=== PATIENT | male | born 1985 | race Caucasian/White ===

== ENCOUNTER 2016-10-11 21:45 | Emergency (ER) | payer BC ==
--- NOTE | 2016-10-11 23:45 | ER Document Report ---
ED General - General Chief Complaint: Cough Stated Complaint: CHEST PAIN Time seen by provider: 23:40 Notes: Patient is a 31-year-old obese male that comes emergency department for chief complaint of chest pain. He states that over the past couple of days or so when he eats he notices a sharp pain in his chest in the middle, he states that when he takes a deep breath he feels a pain occasionally, he states that when he wakes up he coughs and occasionally he wakes up and vomits. He denies any current symptoms. He denies shortness of breath. He has a history of THU and is supposed to wear C Pap, he smokes, he admits to large amounts of caffeine. He states that he has been told that he has reflux and he feels reflux frequently. TRAVEL OUTSIDE OF THE [place] IN LAST 30 DAYS: No - Related Data Allergies/Adverse Reactions: No Known Allergies Allergy (Verified 04/03/14 18:01) Past Medical History - General Information source: Patient - Social History Smoking Status: Current Every Day Smoker Smoking Education Provided: Yes - <3 min Frequency of alcohol use: Rare Drug Abuse: None Lives with: Family Family History: Reviewed & Not Pertinent Patient has suicidal ideation: No Patient has homicidal ideation: No Renal/ Medical History: Denies: Hx Peritoneal Dialysis Psychiatric Medical History: Reports: Hx Anxiety, Hx Bipolar Disorder, Hx Depression Past Surgical History: Reports: Hx Myringotomy - Immunizations Hx Diphtheria, Pertussis, Tetanus Vaccination: Yes Review of Systems - Review of Systems Constitutional: No symptoms reported EENT: No symptoms reported Cardiovascular: See HPI Respiratory: See HPI Gastrointestinal: See HPI Genitourinary: No symptoms reported Male Genitourinary: No symptoms reported Musculoskeletal: No symptoms reported Skin: No symptoms reported Hematologic/Lymphatic: No symptoms reported Neurological/Psychological: No symptoms reported Physical Exam - Vital signs Vitals: Temp Pulse Resp BP Pulse Ox 97.6 F 83 19 127/74 H 99 10/11/16 22:24 10/11/16 22:24 10/11/16 22:24 10/11/16 22:24 10/11/16 22:24 Interpretation: Normal - General General appearance: Appears well, Alert In distress: None - Patient laughing, very talkative, smiling, alert, well appearing - HEENT Head: Normocephalic, Atraumatic Eyes: Normal Conjunctiva: Normal Extraocular movements intact: Yes Eyelashes: Normal Pupils: PERRL Sinus: Normal Nasal: Normal Mouth/Lips: Normal Mucous membranes: Normal Pharynx: Normal Neck: Normal - Respiratory Respiratory status: No respiratory distress Chest status: Nontender Breath sounds: Normal Chest palpation: Normal - Cardiovascular Rhythm: Regular. No: Tachycardia Heart sounds: Normal auscultation, S2 appreciated. No: S1 appreciated Murmur: No - Abdominal Inspection: Normal Distension: No distension Bowel sounds: Normal Tenderness: Nontender. No: Tender, Guarding Organomegaly: No organomegaly - Back Back: Normal, Nontender. No: Tender - Extremities General upper extremity: Normal inspection, Nontender, Normal color, Normal ROM , Normal temperature General lower extremity: Normal inspection, Nontender, Normal color, Normal ROM , Normal temperature, Normal weight bearing. 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 Nonspecific symptoms, symptoms are not new. Based on patient's evaluation, workup, and examination, patient will be started on medications for GERD, instructed primary care follow-up, discussed return precautions. Patient states satisfaction and agreement. - Vital Signs Vital signs: Temp Pulse Resp BP Pulse Ox 97 F L 82 16 132/65 H 98 10/12/16 01:30 10/12/16 01:30 10/12/16 01:30 10/12/16 01:30 10/12/16 01:30 Discharge - Discharge Clinical Impression: Chest pain Qualifiers: Chest pain type: unspecified Qualified Code(s): R07.9 - Chest pain, unspecified Condition: Stable Disposition: HOME, SELF-CARE Additional Instructions: EKG shows no changes, chest x-ray is normal, based on your symptoms and examination this appears to be gastrointestinal in nature. Take the omeprazole as directed daily, reduced caffeine, stop smoking, avoid spicy foods, avoid alcohol and NSAIDs. Follow up with primary care closely for additional management and workup. Return to the emergency department for any concerning or worsening symptoms. Prescriptions: Omeprazole 40 mg PO DAILY #60 capsule.dr Forms: Return to Work
--- NOTE | 2016-10-12 00:08 | EKG REPORT ---
SEVERITY:- ABNORMAL ECG - SINUS RHYTHM LEFT ANTERIOR FASCICULAR BLOCK : Confirmed by: Agata De La Fuente 12-Oct-2016 00:08:16
[2016-10-12] MEDS ORDERED: FAMOTIDINE 20 MG TABLET PO ONE (00:58)
[2016-10-12] MEDS ORDERED: SUCRALFATE 1 GM TABLET PO ONE (00:58)
[2016-10-12] MEDS ORDERED: ONDANSETRON 4 MG TAB.RAPDIS PO ONE (00:58)
[2016-10-12 01:47] VITALS: BP 132/65
== END 2016-10-12 01:30 | disposition home or self-care (01) ==
LOC: ER 21:45
DX: R07.9 Chest pain, unspecified (principal); F17.210 Nicotine dependence, cigarettes, uncomplicated
CPT/HCPCS: 93005; 99283; 71020; 93010; S0119

== ENCOUNTER 2017-02-03 08:08 | Emergency (ER) | payer OTHER ==
[2017-02-03] MEDS ORDERED: DOXYCYCLINE HYCLATE 100 MG TABLET PO ONE (08:45)
[2017-02-03] MEDS ORDERED: CLINDAMYCIN HCL 150 MG CAPSULE PO ONE (08:45)
--- NOTE | 2017-02-03 08:59 | ER Document Report ---
ED Extremity Problem, Lower - General Chief Complaint: Leg Pain Stated Complaint: BILATERAL LEG PAIN Time Seen by Provider: 02/03/17 08:25 Mode of Arrival: Ambulatory Information source: Patient Notes: 31-year-old male who complains of bilateral lower extremity redness and pain. Patient notes he was out fishing a few days prior got sunburned. Symptoms were improving from a sunburn however today he began having worsening pain. Patient denies any fevers or chills admits it feels very warm to touch Patient denies any chest pain shortness of breath of breathing TRAVEL OUTSIDE OF THE [place] IN LAST 30 DAYS: No - Related Data Allergies/Adverse Reactions: No Known Allergies Allergy (Verified 04/03/14 18:01) Past Medical History - Social History Smoking Status: Never Smoker Cigarette use (# per day): No Chew tobacco use (# tins/day): No Smoking Education Provided: No Family History: Reviewed & Not Pertinent Patient has suicidal ideation: No Patient has homicidal ideation: No Renal/ Medical History: Denies: Hx Peritoneal Dialysis Psychiatric Medical History: Reports: Hx Anxiety, Hx Bipolar Disorder, Hx Depression Past Surgical History: Reports: Hx Myringotomy - Immunizations Hx Diphtheria, Pertussis, Tetanus Vaccination: Yes Review of Systems - Review of Systems Notes: PHYSICAL EXAMINATION: GENERAL: Well-appearing, well-nourished and in no acute distress. HEAD: Atraumatic, normocephalic. EYES: Pupils equal round and reactive to light, extraocular movements intact, sclera anicteric, conjunctiva are normal. ENT: Nares patent, oropharynx clear without exudates. Moist mucous membranes. NECK: Normal range of motion, supple without lymphadenopathy LUNGS: Breath sounds clear to auscultation bilaterally and equal. No wheezes rales or rhonchi. HEART: Regular rate and rhythm without murmurs ABDOMEN: Soft, nontender, nondistended abdomen. No guarding, no rebound. No masses appreciated. Musculoskeletal: Normal range of motion, no pitting or edema. No cyanosis. NEUROLOGICAL: Cranial nerves grossly intact. Normal speech, normal gait. Normal sensory, motor exams PSYCH: Normal mood, normal affect. SKIN: Bilateral lower extremity erythema tender warm to touch Physical Exam - Vital signs Vitals: Temp Pulse Resp BP Pulse Ox 98.3 F 97 18 162/84 H 99 02/03/17 08:12 02/03/17 08:12 02/03/17 08:12 02/03/17 08:12 02/03/17 08:12 Course - Re-evaluation Re-evalutation: 02/03/17 16:55 Patient was evaluated and on physical examination has obvious cellulitic component, he is warm to touch. Patient is not having any fevers, since it is tender after being in the water and cuts were made from oysters i will cover for vibrio and possible staph. Patient instructed to return immediately if there are any other concerns After performing a Medical Screening Examination, I estimate there is LOW risk for OPEN FRACTURE, COMPARTMENT SYNDROME, TENDON RUPTURE, ACUTE NEUROVASCULAR INJURY, or RETAINED FOREIGN BODY, thus I consider the discharge disposition reasonable. Also, there is no evidence or peritonitis, sepsis, or toxicity. I have reevaluated this patient multiple times and no significant life threatening changes are noted. The patient and I have discussed the diagnosis and risks, and we agree with discharging home with close follow-up with the understanding that symptoms and presentations can change. We also discussed returning to the Emergency Department immediately if new or worsening symptoms occur. We have discussed the symptoms which are most concerning (e.g., changing or worsening pain, fever, numbness, weakness, cool or painful digits) that necessitate immediate return. - Vital Signs Vital signs: Temp Pulse Resp BP Pulse Ox 98.1 F 83 16 142/80 H 100 02/03/17 09:31 02/03/17 09:31 02/03/17 09:31 02/03/17 09:31 02/03/17 09:31 Discharge - Discharge Clinical Impression: Cellulitis Qualifiers: Site of cellulitis: extremity Site of cellulitis of extremity: lower extremity Laterality: unspecified laterality Qualified Code(s): L03.119 - Cellulitis of unspecified part of limb Leg pain Qualifiers: Laterality: bilateral Qualified Code(s): M79.604 - Pain in right leg Condition: Stable Disposition: HOME, SELF-CARE Instructions: Cellulitis ([facility]) Additional Instructions: You must return immediately if symptoms are worsening or if there are any other concerns Prescriptions: Clindamycin HCl 300 mg PO Q6 #40 capsule Doxycycline Hyclate 100 mg PO BID #20 capsule Oxycodone HCl/Acetaminophen [Percocet 5-325 mg Tablet] 1 tab PO ASDIR PRN #15 tab PRN Reason:
[2017-02-03 09:39] VITALS: BP 142/80
== END 2017-02-03 09:31 | disposition home or self-care (01) ==
LOC: ER 08:08
DX: L03.119 Cellulitis of unspecified part of limb (principal); M79.604 Pain in right leg; M79.605 Pain in left leg
CPT/HCPCS: 99283

== ENCOUNTER 2017-02-07 08:28 | Emergency (ER) | payer OTHER ==
[2017-02-07] MEDS ORDERED: CEFTRIAXONE INJ 1000 MG VIAL IM ONE (10:15)
[2017-02-07] MEDS ORDERED: LIDOCAINE 1% INJ-PF (10 MG/ML) 30 ML SDV INJ ONE (10:15)
--- NOTE | 2017-02-07 10:15 | ER Document Report ---
ED Extremity Problem, Lower - General Mode of Arrival: Ambulatory Information source: Patient TRAVEL OUTSIDE OF THE [place] IN LAST 30 DAYS: No - HPI Patient complains to provider of: Pain, Swelling Location: Leg - bilaterally Occurred: Other - 8 days ago Context: Other - see notes above Associated symptoms: Other - see notes above - General Chief Complaint: Leg Pain Stated Complaint: LEG PAIN Time Seen by Provider: 02/07/17 10:07 Notes: 31 year old male presents to the ED complaining of bilateral lower extremity erythema, swelling, and tenderness that started 8 days ago and has progressively gotten worse. Patient reports that it started with erythema and swelling to the dorsal aspect to the bilateral feet and has spread up his bilateral legs since. Patient states that he was seen in the ED on 02/03/2017 for similar complaints and was started on Doxycycline and Clindamycin which the patient is taking. Patient returned today because the erythema, pain, and tenderness have spread up his legs. Patient states that he was fishing last week and ended up being cut by shells in the mud, but denies being bit by anything. Patient denies history of blood clots. PCP: [facility] (CRISTELA HUYNH) - Related Data Allergies/Adverse Reactions: No Known Allergies Allergy (Verified 04/03/14 18:01) Past Medical History - General Information source: Patient - Social History Smoking Status: Unknown if Ever Smoked Family History: DM Renal/ Medical History: Denies: Hx Peritoneal Dialysis Psychiatric Medical History: Reports: Hx Anxiety, Hx Bipolar Disorder, Hx Depression Past Surgical History: Reports: Hx Myringotomy - Immunizations Hx Diphtheria, Pertussis, Tetanus Vaccination: Yes Review of Systems - Review of Systems Constitutional: No symptoms reported EENT: No symptoms reported Cardiovascular: No symptoms reported Respiratory: No symptoms reported Gastrointestinal: No symptoms reported Genitourinary: No symptoms reported Male Genitourinary: No symptoms reported Musculoskeletal: No symptoms reported Skin: See HPI, Other - erythema and swelling to the bilateral lower extremities Hematologic/Lymphatic: No symptoms reported Neurological/Psychological: No symptoms reported -: Yes All other systems reviewed and negative Physical Exam - General General appearance: Alert In distress: None - HEENT Head: Normocephalic, Atraumatic Eyes: Normal Extraocular movements intact: Yes Pupils: PERRL - Respiratory Respiratory status: No respiratory distress Breath sounds: Normal - Cardiovascular Rhythm: Regular Heart sounds: Normal auscultation Pulses: Normal: Femoral, Popliteal, Posterior tibial, Dorsalis pedis Normal capillary refill: Yes - Abdominal Inspection: Normal Distension: No distension Tenderness: Nontender - Back Back: Normal - Extremities General upper extremity: Normal inspection, Normal ROM General lower extremity: Normal ROM, Other - Bilateral lower extremity erythema that is localized with no superficial spreading to the calf, thigh, or inguinal region. No sign of necrosis or crepitus. No: Normal inspection, Edema - no signs of pitting edema - Neurological Neuro grossly intact: Yes Cognition: Normal Orientation: AAOx4 Rima Coma Scale Eye Opening: Spontaneous [place] Coma Scale Verbal: Oriented [place] Coma Scale Motor: Obeys Commands [place] Coma Scale Total: 15 Speech: Normal - Psychological Associated symptoms: Normal affect, Normal mood - Skin Skin Temperature: Warm Skin Moisture: Dry Skin Color: negative: Normal - see lower extremity exam above Course - Re-evaluation Re-evalutation: 02/07/17 10:16 Patient presents emergency room with lower extremity with redness. Patient states that he was here about a week ago had some redness to the top of his toes initially thought was maybe August also that scratched on some oyster beds. He was placed on doxycycline and clindamycin but says it got a little bit more red today. No fevers chills or systemic complaints he is not diabetic no nausea vomiting or diarrhea he has got bilateral lower extremity cellulitis that is not spreading in nature no inguinal lymphadenopathy no crepitus necrosis no open is no drainage pustules or abscesses. Pulses intact. And give him a dose of Rocephin in the fifth of feeling Dr. tomorrow and discussed reasons for ED return sooner (LISA FREED) - Vital Signs Vital signs: Temp Pulse Resp BP Pulse Ox 97.8 F 80 16 153/92 H 98 02/07/17 10:25 02/07/17 10:25 02/07/17 10:25 02/07/17 10:25 02/07/17 10:25 Discharge - Discharge Clinical Impression: Lower extremity cellulitis Qualifiers: Laterality: unspecified laterality Qualified Code(s): L03.119 - Cellulitis of unspecified part of limb Condition: Stable Disposition: HOME, SELF-CARE Additional Instructions: Cellulitis You have an infection of your skin and underlying soft tissues called cellulitis. This is due to bacteria, which can enter through any break in the skin, or even through an irritated hair follicle. Untreated, cellulitis will usually worsen. Antibiotics are required. Usually, warm packs or warm soaks, and elevation of the infected area are recommended. You should start getting better within 24 to 36 hours. Most infections respond quickly to the right medication. Follow-up care is important, however, to check for abscess (boil) formation, unsuspected foreign body, or resistant infection. If you develop fever, chills, or if the area of infection is becoming rapidly more swollen or painful, call the doctor at once. Referrals: YANIV ZHAO CNM [Primary Care Provider] - Follow up tomorrow (retur to er sooner for increasing worsening or new symptoms) Isaac Attestation: 02/07/17 10:16 I personally performed the services described in the documentation reviewed the documentation recorded by my scribe in my presence and it accurately and completely records my words and actions (LISA FREED) Krystynaibe Documentation - Scribe Written by Isaac:: Isaac Fiore, 02/07/2017 1121 acting as scribe for :: Rubén
[2017-02-07 10:29] VITALS: BP 153/92
== END 2017-02-07 10:30 | disposition home or self-care (01) ==
LOC: ER 08:28
DX: L03.119 Cellulitis of unspecified part of limb (principal); M79.604 Pain in right leg; M79.605 Pain in left leg; M79.89 Other specified soft tissue disorders; Z79.899 Other long term (current) drug therapy
CPT/HCPCS: 99283; 96372; J3490; J0696

== ENCOUNTER 2017-06-17 06:04 | Emergency (ER) | payer OTHER ==
--- NOTE | 2017-06-17 07:33 | ER Document Report ---
HPI - HPI Patient complains to provider of: sinus congestion and ear pain Pain Level: 2 Context: Patient is a 31-year-old male presents emergency department complaining of congestion and ear pain for approximately 1 week. He denies any fevers, chills , sore throat, shortness of breath, difficulty breathing, difficulty swallowing , chest pain, nausea or vomiting. Patient states that he has had symptoms like this in the past related to a head cold that is resolved. - CARDIOVASCULAR Cardiovascular: DENIES: Chest pain - REPRODUCTIVE Reproductive: DENIES: : - DERM Skin Color: Normal Past Medical History - Social History Smoking Status: Unknown if Ever Smoked Chew tobacco use (# tins/day): No Frequency of alcohol use: None Drug Abuse: None Family History: DM Patient has suicidal ideation: No Patient has homicidal ideation: No Renal/ Medical History: Denies: Hx Peritoneal Dialysis Psychiatric Medical History: Reports: Hx Anxiety, Hx Bipolar Disorder, Hx Depression Past Surgical History: Reports: Hx Myringotomy - Immunizations Hx Diphtheria, Pertussis, Tetanus Vaccination: Yes Vertical Provider Document - CONSTITUTIONAL Agree With Documented VS: Yes Exam Limitations: No Limitations General Appearance: WD/WN, No Apparent Distress - INFECTION CONTROL TRAVEL OUTSIDE OF THE [place] IN LAST 30 DAYS: No - HEENT HEENT: Atraumatic, Normal ENT Exam, Normocephalic, PERRLA. negative: Pharyngeal Exudate, Pharyngeal Tenderness, Pharyngeal Erythema, Tympanic Membrane Red, Tympanic Membrane Bulging Notes: Uvula midline. Airway patent. No evidence of tonsillar enlargement, peritonsillar abscess, retropharyngeal abscess. - NECK Neck: Normal Inspection. negative: Lymphadenopathy-Left, Lymphadenopathy-Right - RESPIRATORY Respiratory: Breath Sounds Normal, No Respiratory Distress, Chest Non-Tender. negative: Rales, Rhonchi, Wheezing O2 Sat by Pulse Oximetry: 99 - CARDIOVASCULAR Cardiovascular: Regular Rate, Regular Rhythm, No Murmur Pulses: Normal: Radial - NEURO Level of Consciousness: Awake, Alert, Appropriate Motor/Sensory: No Motor Deficit, No Sensory Deficit - DERM Integumentary: Warm, Dry, No Rash Course - Re-evaluation Re-evalutation: 06/17/17 07:31 After performing a Medical Screening Examination, I estimate there is LOW risk for ACUTE CORONARY SYNDROME, RESPIRATORY FAILURE, SEPSIS OR MENINGITIS, thus I consider the discharge disposition reasonable. I have reevaluated this patient multiple times and no significant life threatening changes are noted. The patient and I have discussed the diagnosis and risks, and we agree with discharging home with close follow-up. We also discussed returning to the Emergency Department immediately if new or worsening symptoms occur. We have discussed the symptoms which are most concerning (e.g., changing or worsening pain, trouble swallowing or breathing, neck stiffness, fever) that necessitate immediate return. - Vital Signs Vital signs: Temp Pulse Resp BP Pulse Ox 97.3 F 86 24 H 146/96 H 99 06/17/17 06:08 06/17/17 06:08 06/17/17 06:08 06/17/17 06:08 06/17/17 06:08 Discharge - Discharge Clinical Impression: Sinus congestion Condition: Good Disposition: HOME, SELF-CARE Additional Instructions: Your symptoms today are consistent with sinus congestion this can be treated with [id number] medication such as an antihistamine including but not limited to Claritin, Benadryl, Lisa or Zyrtec. Please purchase a antihistamine with a decongestant to help with your sinus congestion and ear pain. Please follow-up with your primary care provider in 1 week. Referrals: EVANGELISTA KONG MD [COMMUNITY BASED STAFF] - Follow up in 1 week
[2017-06-17 07:44] VITALS: BP 146/94
== END 2017-06-17 07:45 | disposition home or self-care (01) ==
LOC: ER 06:04
DX: R09.81 Nasal congestion (principal); H92.09 Otalgia, unspecified ear
CPT/HCPCS: 99283

== ENCOUNTER 2017-08-25 14:41 | Emergency (ER) | payer OTHER ==
[2017-08-25] MEDS ORDERED: IBUPROFEN 800 MG TABLET PO ONE (15:15)
[2017-08-25] MEDS ORDERED: LIDOCAINE 5% (700 MG) TRANSDERMAL ADH..PATCH TP ONE (15:15)
--- NOTE | 2017-08-25 15:16 | ER Document Report ---
HPI - HPI Patient complains to provider of: Low back pain Onset: Other - 2 weeks Onset/Duration: Persistent Quality of pain: Achy Pain Level: 3 Context: Patient presents complaining of right lower back pain that radiates around his lateral side. Patient states pain is worse with certain movements. Patient denies any specific injury. Patient denies any abdominal pain, fever, nausea or vomiting. Patient denies any penile drainage or discharge. Patient denies any scrotal pain. Patient states whenever he stands up to void that sometimes the pain worsens. Associated Symptoms: Other - Right lower back pain. denies: Fever Exacerbated by: Standing, Movement Relieved by: Denies Similar symptoms previously: No Recently seen / treated by doctor: No - ROS ROS below otherwise negative: Yes Systems Reviewed and Negative: Yes All other systems reviewed and negative - CONSTITUTIONAL Constitutional: DENIES: Fever, Chills - NEURO Neurology: DENIES: Headache, Weakness - GASTROINTESTINAL Gastrointestinal: DENIES: Abdominal Pain, Nausea - URINARY Urinary: DENIES: Dysuria, Urgency, Frequency - MUSCULOSKELETAL Musculoskeletal: REPORTS: Back Pain. 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 HEAD: Atraumatic, normocephalic. EYES: sclera clear, anicteric, conjunctiva are normal. ENT: nares patent, Moist mucous membranes. NECK: Normal range of motion, supple no lymphadenopathy LUNGS: respirations unlabored HEART: Regular rate and rhythm without murmurs EXTREMITIES: Normal range of motion, no pitting or edema. No cyanosis. Gait normal, pt ambulates without difficulty BACK: Right lower lumbar paraspinal tenderness, no midline tenderness, no deformities or step-offs. No CVA tenderness. NEUROLOGICAL: Cranial nerves grossly intact. Normal speech, normal gait. No saddle anesthesia. PSYCH: Normal mood, normal affect. SKIN: Warm, Dry, normal turgor, no rashes or lesions noted. - INFECTION CONTROL TRAVEL OUTSIDE OF THE [place] IN LAST 30 DAYS: No - RESPIRATORY O2 Sat by Pulse Oximetry: 99 Course - Vital Signs Vital signs: Temp Pulse Resp BP Pulse Ox 97.9 F 86 20 137/78 H 99 08/25/17 14:49 08/25/17 14:49 08/25/17 14:49 08/25/17 14:49 08/25/17 14:49 - Laboratory Laboratory results interpreted by me: 08/25/17 16:25 Labs- Entire Visit 08/25/17 15:53 Urine Color YELLOW Urine Appearance CLEAR Urine pH 6.0 Ur Specific [place] 1.031 Urine Protein NEGATIVE Urine Glucose (UA) NEGATIVE Urine Ketones NEGATIVE Urine Blood NEGATIVE Urine Nitrite NEGATIVE Urine Bilirubin NEGATIVE Urine Urobilinogen 2.0 H Ur Leukocyte Esterase NEGATIVE Urine WBC (Auto) 0 Urine RBC (Auto) 0 U Hyaline Cast (Auto) 1 Urine Mucus (Auto) OCC Urine Ascorbic Acid NEGATIVE Discharge - Discharge Clinical Impression: Low back strain Qualifiers: Encounter type: initial encounter Qualified Code(s): S39.012A - Strain of muscle, fascia and tendon of lower back, initial encounter Condition: Stable Disposition: HOME, SELF-CARE Instructions: Ice Packs ([facility]), Low Back Pain ([facility]), Muscle Strain ([facility]), Oral Narcotic Medication ([facility]), Warm Packs ([facility]) Additional Instructions: Return immediately for any new or worsening symptoms Followup with your primary care provider, call tomorrow to make a followup appointment Prescriptions: Methocarbamol [Robaxin 500 Mg Tablet] 500 mg PO QID PRN #20 tablet PRN Reason: Oxycodone HCl/Acetaminophen [Percocet 5-325 mg Tablet] 1 tab PO ASDIR PRN #15 tablet PRN Reason: Forms: Smoking Cessation Education Referrals: EVANGELISTA KONG MD [Primary Care Provider] - Follow up tomorrow
[2017-08-25 16:07] LABS: APPEARANCE,URINE CLEAR; BILIRUBIN,URINE NEGATIVE (NEGATIVE); GLUCOSE, URINE NEGATIVE (NEGATIVE); KETONES,URINE NEGATIVE (NEGATIVE); LEUKOCYTE ESTERASE,URINE NEGATIVE (NEGATIVE); NITRITE,URINE NEGATIVE (NEGATIVE); PROTEIN,URINE NEGATIVE (NEGATIVE); URINE SPECIFIC GRAVITY 1.031
[2017-08-25 17:13] VITALS: BP 143/86
== END 2017-08-25 16:45 | disposition home or self-care (01) ==
LOC: ER 14:41
DX: S39.012A Strain of muscle, fascia and tendon of lower back, initial encounter (principal); X58.XXXA Exposure to other specified factors, initial encounter; F17.200 Nicotine dependence, unspecified, uncomplicated; Z71.6 Tobacco abuse counseling
CPT/HCPCS: 81001; 99283

== ENCOUNTER 2017-11-12 10:24 | Emergency (ER) | payer OTHER ==
[2017-11-12 10:41] VITALS: BP 129/82
[2017-11-12] MEDS ORDERED: IBUPROFEN 800 MG TABLET PO ONE (10:59)
--- NOTE | 2017-11-12 11:00 | ER Document Report ---
HPI - HPI Patient complains to provider of: Cold symptoms Onset: This morning Onset/Duration: Gradual Quality of pain: Achy Pain Level: 3 Context: Patient presents complaining of flulike symptoms that started today. Patient reports headache, body aches with congestion and nausea. Patient is here with a family member who has similar symptoms. Associated Symptoms: Body/muscle aches, Nonproductive cough, Headache, Nausea, Rhinnorhea. denies: Earache, Vomiting Exacerbated by: Denies Relieved by: Denies Similar symptoms previously: Yes Recently seen / treated by doctor: No - ROS ROS below otherwise negative: Yes Systems Reviewed and Negative: Yes All other systems reviewed and negative - CONSTITUTIONAL Constitutional: REPORTS: Chills - EENT EENT: REPORTS: Congestion - NEURO Neurology: REPORTS: Headache - RESPIRATORY Respiratory: REPORTS: Coughing - GASTROINTESTINAL Gastrointestinal: REPORTS: Nausea. DENIES: Abdominal Pain, Patient vomiting, Diarrhea - REPRODUCTIVE Reproductive: DENIES: : - DERM Skin Color: Normal Skin Problems: None Past Medical History - General Information source: Patient - Social History Smoking Status: Current Every Day Smoker Smoking Education Provided: Yes Frequency of alcohol use: None Drug Abuse: None Occupation: [employer] Lives with: Family Family History: DM Renal/ Medical History: Denies: Hx Peritoneal Dialysis Psychiatric Medical History: Reports: Hx Anxiety, Hx Bipolar Disorder, Hx Depression Surgical Hx: Negative Past Surgical History: Reports: Hx Myringotomy - Immunizations Hx Diphtheria, Pertussis, Tetanus Vaccination: Yes Vertical Provider Document - CONSTITUTIONAL Agree With Documented VS: Yes Exam Limitations: No Limitations General Appearance: Obese - Morbidly - INFECTION CONTROL TRAVEL OUTSIDE OF THE [place] IN LAST 30 DAYS: No - HEENT HEENT: Atraumatic, Normocephalic, Pharyngeal Erythema. negative: Pharyngeal Exudate, Pharyngeal Tenderness, Tympanic Membrane Red, Tympanic Membrane Bulging Notes: Clear rhinorrhea - NECK Neck: Normal Inspection, Supple - RESPIRATORY Respiratory: Breath Sounds Normal, No Respiratory Distress, Chest Non-Tender O2 Sat by Pulse Oximetry: 98 - CARDIOVASCULAR Cardiovascular: Regular Rate, Regular Rhythm, No Murmur - BACK Back: Normal Inspection - MUSCULOSKELETAL/EXTREMETIES Musculoskeletal/Extremeties: ZOILA WING - NEURO Level of Consciousness: Awake, Alert, Appropriate Motor/Sensory: No Motor Deficit - DERM Integumentary: Warm, Dry, No Rash Course - Re-evaluation Re-evalutation: 11/12/17 10:58 Patient presents with URI symptoms. Patient concerned about influenza. Patient is requesting Tamiflu prescription at this time. Discussed efficacy and side effect profile medication. - Vital Signs Vital signs: Temp Pulse Resp BP Pulse Ox 97.8 F 74 16 129/82 H 98 11/12/17 10:39 11/12/17 10:39 11/12/17 10:39 11/12/17 10:39 11/12/17 10:39 Discharge - Discharge Clinical Impression: Flu-like symptoms Condition: Stable Disposition: HOME, SELF-CARE Instructions: Acetaminophen, Influenza (OM) Additional Instructions: Return immediately for any new or worsening symptoms Followup with your primary care provider, call tomorrow to make a followup appointment Prescriptions: Guaifenesin/Pseudoephedrne HCl [Mucinex D ER Tablet] 1 each PO Q12 PRN #12 tab.er.12h PRN Reason: Naproxen [Naprosyn 250 Nmg Tablet] 1 tab PO BID #14 tablet Oseltamivir Phosphate [Tamiflu 75 mg Capsule] 75 mg PO BID #10 capsule Forms: Smoking Cessation Education, Return to Work Referrals: EVANGELISTA KONG MD [COMMUNITY BASED STAFF] - Follow up as needed
== END 2017-11-12 11:12 | disposition home or self-care (01) ==
LOC: ER 10:24
DX: R51 Headache (principal); R11.0 Nausea; R05 Cough; J34.89 Other specified disorders of nose and nasal sinuses; M79.1 Myalgia; F17.200 Nicotine dependence, unspecified, uncomplicated
CPT/HCPCS: 99283

== ENCOUNTER 2017-11-18 20:05 | Emergency (ER) | payer OTHER ==
[2017-11-18] MEDS ORDERED: HYDROCODONE/ACETAMINOPHEN 5-325 MG TABLET PO ONE (21:58)
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
[2017-11-18] MEDS ORDERED: CYCLOBENZAPRINE HCL 10 MG TABLET PO ONE (23:08)
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
[2017-11-19 00:01] VITALS: BP 129/78
== END 2017-11-19 00:19 | disposition home or self-care (01) ==
LOC: ER 20:05
DX: M54.6 Pain in thoracic spine (principal); M25.512 Pain in left shoulder; M54.5 Low back pain; M25.532 Pain in left wrist; M79.602 Pain in left arm; M54.9 Dorsalgia, unspecified; V87.7XXA Person injured in collision between other specified motor vehicles (traffic), initial encounter; F17.210 Nicotine dependence, cigarettes, uncomplicated
CPT/HCPCS: 72110; 99284; 99406

== ENCOUNTER 2018-08-16 20:24 | Emergency (ER) | payer BC, OTHER ==
--- NOTE | 2018-08-16 21:46 | RADIOLOGY REPORT (SQ) ---
EXAM DESCRIPTION: XR HAND 3 OR MORE VIEWS COMPLETED DATE/TME: 08/16/2018 21:02 CLINICAL HISTORY: laceration COMPARISON: None FINDINGS: Three x-ray views of the right hand were submitted. Gauze material project over the distal right thumb. There is no acute fracture or dislocation. Bone mineralization is within normal limits. There is no radiopaque foreign body material. IMPRESSION: No acute fracture or dislocation.
[2018-08-16] MEDS ORDERED: LIDOCAINE 1% INJ-PF (10 MG/ML) 30 ML SDV INJ ONE (23:08)
--- NOTE | 2018-08-16 23:11 | ER Document Report ---
ED Hand/Wrist Injury - General Chief Complaint: Laceration Stated Complaint: FINGER LACERATION Time Seen by Provider: 08/16/18 22:53 Mode of Arrival: Ambulatory Information source: Patient Notes: 32-year-old male presented to ED for laceration to the right thumb. He states he was cutting potatoes when he cut his thumb. He states he was having trouble making the bleeding stopped. The thumb was wrapped up in gauze which I took off. He does have sensation to his hands able to move his thumb. The laceration is to the end of the finger past the last joint. He states he had his last tetanus last year and during a physical. Patient is alert and oriented respirations regular and unlabored speaking in full sentences and able to walk with a even steady gait. TRAVEL OUTSIDE OF THE [place] IN LAST 30 DAYS: No - HPI Injury to: Thumb - Right Onset: This evening Where: Home, Indoors Quality of pain: Sharp, Throbbing Severity: Moderate Pain Level: 4 Context: Laceration - Related Data Allergies/Adverse Reactions: No Known Allergies Allergy (Verified 08/16/18 20:25) Past Medical History - General Information source: Patient - Social History Smoking Status: Current Every Day Smoker Cigarette use (# per day): Yes - 1 1/2 packs/day Smoking Education Provided: Yes - 4 minutes Frequency of alcohol use: Rare Drug Abuse: None Occupation: [employer] Lives with: Family Family History: Arthritis, CAD, COPD, DM, Hyperlipidemia, Hypertension, Malignancy. denies: CVA, Thyroid Disfunction Patient has suicidal ideation: No Patient has homicidal ideation: No - Past Medical History Cardiac Medical History: Reports: None Pulmonary Medical History: Reports: None EENT Medical History: Reports: None Neurological Medical History: Reports: None Endocrine Medical History: Reports: None Renal/ Medical History: Reports: None Malignancy Medical History: Reports None GI Medical History: Reports: None Musculoskeletal Medical History: Reports Hx Musculoskeletal Trauma Skin Medical History: Reports Hx Cellulitis, Reports Hx MRSA Psychiatric Medical History: Reports: Hx Anxiety, Hx Bipolar Disorder, Hx Depression Traumatic Medical History: Reports: Hx Fractures - Toe Infectious Medical History: Reports: Hx MRSA Past Surgical History: Reports: Hx Myringotomy - Immunizations Hx Diphtheria, Pertussis, Tetanus Vaccination: Yes - 2017 Review of Systems - Review of Systems Constitutional: No symptoms reported EENT: No symptoms reported Cardiovascular: No symptoms reported Respiratory: No symptoms reported Gastrointestinal: No symptoms reported Genitourinary: No symptoms reported Male Genitourinary: No symptoms reported Musculoskeletal: No symptoms reported Skin: Other - Laceration to the end of the thumb Hematologic/Lymphatic: No symptoms reported Neurological/Psychological: No symptoms reported -: Yes All other systems reviewed and negative Physical Exam - Vital signs Vitals: Temp Pulse Resp BP Pulse Ox 98.2 F 70 18 159/97 H 100 08/16/18 20:50 08/16/18 20:50 08/16/18 20:50 08/16/18 20:50 08/16/18 20:50 Interpretation: Normal - General General appearance: Appears well, Alert - HEENT Head: Normocephalic, Atraumatic Eyes: Normal Pupils: PERRL - Respiratory Respiratory status: No respiratory distress Chest status: Nontender Breath sounds: Normal Chest palpation: Normal - Cardiovascular Rhythm: Regular Heart sounds: Normal auscultation Murmur: No - Abdominal Inspection: Normal Distension: No distension Bowel sounds: Normal Tenderness: Nontender Organomegaly: No organomegaly - Back Back: Normal, Nontender - Extremities General upper extremity: Normal color, Normal ROM, Normal temperature General lower extremity: Normal inspection, Nontender, Normal color, Normal ROM , Normal temperature, Normal weight bearing. No: Irene's sign Hand: Tender, Laceration - Flap laceration to the right thumb 4 cm, No evidence of human bite, No evidence of FB, Swelling. No: Nail injury - Neurological Neuro grossly intact: Yes Cognition: Normal Orientation: AAOx4 Rima Coma Scale Eye Opening: Spontaneous Rima Coma Scale Verbal: Oriented [place] Coma Scale Motor: Obeys Commands [place] Coma Scale Total: 15 Speech: Normal Motor strength normal: LUE, RUE, LLE, RLE Sensory: Normal - Psychological Associated symptoms: Normal affect, Normal mood - Skin Skin Temperature: Warm Skin Moisture: Dry Skin Color: Normal Skin irregularity: Laceration Location of irregularity: Extremities - right thumb 4 cm laceration distal thumb Irregularity with: Swelling, Tenderness Course - Vital Signs Vital signs: Temp Pulse Resp BP Pulse Ox 98.6 F 76 16 153/75 H 97 08/17/18 00:43 08/17/18 00:43 08/17/18 00:43 08/17/18 00:43 12/06/18 00:43 - Diagnostic Test Radiology reviewed: Image reviewed, Reports reviewed Procedures - Laceration/Wound Repair Right Finger Thumb Time completed: 00:25 Wound length (cm): 4 Wound's Depth, Shape: Flap Laceration pre-procedure: Sterile PPE donned, Sterile drapes applied, Shur- Clens applied Anesthetic type: 1% Lidocaine Volume Anesthetic (mLs): 5 Wound explored: Contaminated Irrigated w/ Saline (mLs): 400 Wound Debrided: Minimal Wound Repaired With: Sutures Suture Size/Type: 4:0, Ethilon Number of Sutures: 7 Layer Closure?: No Post-procedure wound care: Sterile dressing applied Post-procedure NV exam normal: Yes Complications: No Discharge - Discharge Clinical Impression: Laceration of right thumb Qualifiers: Encounter type: initial encounter Damage to nail status: without damage Foreign body presence: without foreign body Qualified Code(s): S61.011A - Laceration without foreign body of right thumb without damage to nail, initial encounter Condition: Stable Disposition: HOME, SELF-CARE Additional Instructions: Hand Laceration A laceration on the hand can present special problems. It may be difficult to keep the wound dry. Motion of the fingers can disturb the healing edges. Your work may involve exposure to damaging chemicals or water. Keep the wound clean and dry. If you can't keep the cut dry, undisturbed, and free of chemical exposure, please discuss this with the doctor. If any water or chemical gets onto the dressing, remove it, blot the wound dry, then apply a fresh bandage. Dressings should be changed every day. If you feel the stitches pulling as you move the hand, a splint or other form of protection is needed. If any signs of infection occur (swelling, redness, increasing tenderness, red streaks, tender lumps in the armpit, or fever), see the doctor immediately. SOAP CLEANSING: Gently wash the wound daily using a mild soap (like Ivory, Phisoderm, Neutrogena). Use warm water, rubbing gently until all debris, ooze, and crusting have been washed from the wound. Allow to dry briefly (about 10 minutes) after cleaning. Repeat this cleansing at least three times a day for the first two days and then once or twice a day. ANTIBIOTIC OINTMENT PROTECTION: Your wounds are such that dressing them is not practical or optional. After cleansing, you should apply a thin coating of antibiotic ointment ( Bacitracin, not Neosporin) to the wounds at least three times daily. This lessens infection risk, and may decrease the amount of scarring. Use a q-tip or dull butter knife, not your finger, to apply this ointment. Any debris or ooze which builds up in the ointment should be gently rubbed off with a sterile gauze pad. Harder crusting may need to be gently scrubbed off with a clean wash cloth with soap and warm water, perhaps applying a warm, wet wash cloth to the wound for ten minutes first. Development of redness, severe itching, or blistering may mean allergy to the ointment. See the doctor. Cephalexin The antibiotic you've been prescribed is a member of the cephalosporin class. This type of antibiotic covers a wide variety of infections, including those of the skin, lungs, and urinary tract. It's useful for staph infections. This antibiotic is slightly similar to the penicillin family. In rare cases , a person who is allergic to penicillin will also be allergic to this medication. If you have had a severe allergic reaction to penicillin, and have not taken this antibiotic since that time, notify your doctor. Antibiotics which cover many germs ("broad spectrum" antibiotics) are more likely to cause diarrhea or "yeast" infections. Women prone to vaginal yeast problems may suffer an attack after taking this antibiotic. In infants, oral thrush (white spots "stuck" on the cheek) or yeast diaper rash may result. See your doctor if these problems occur. Call at once if you develop itching, hives , shortness of breath, or lightheadedness. Elevate the Injury Because of the nature of your injury, elevation will be helpful to reduce swelling. This also reduces infection risk in wounds. Keep the injury up above the level of your heart for at least the next 48 hours (or longer if the physician recommends it). FOLLOW-UP CARE: Please return in __3___ days for an infection check and dressing change. Your sutures should be removed in ___8__ days. To facilitate a timely removal of your sutures, you may return to the Emergency Department at [facility]. You do not need to call for an appointment, but the best time to come in for suture removal is early in the morning. If you have been referred to another physician for follow-up care, call that physicians office for an appointment as you were instructed. If you experience a significant change in your laceration, or if you are concerned there may be an infection (swelling, redness, drainage, increasing tenderness, red streaks, tender lumps in the armpit or groin above the laceration, or fever) , return to the Emergency Department immediately re-evaluation. Prescriptions: Cephalexin Monohydrate [Keflex 500 mg Capsule] 500 mg PO Q6H 5 Days capsule Forms: Elevated Blood Pressure, Smoking Cessation Education, Return to Work Referrals: ASHLEY SANTOS MD [Primary Care Provider] - Follow up as needed
[2018-08-17] MEDS ORDERED: CEPHALEXIN 500 MG CAPSULE PO ONE (00:22)
[2018-08-17 00:44] VITALS: BP 153/75
== END 2018-08-17 00:44 | disposition home or self-care (01) ==
LOC: ER 20:24
DX: S61.011A Laceration without foreign body of right thumb without damage to nail, initial encounter (principal); W45.8XXA Other foreign body or object entering through skin, initial encounter; Y93.G9 Activity, other involving cooking and grilling; Y92.009 Unspecified place in unspecified non-institutional (private) residence as the place of occurrence of the external cause; F17.210 Nicotine dependence, cigarettes, uncomplicated; Z71.6 Tobacco abuse counseling; Z86.14 Personal history of Methicillin resistant Staphylococcus aureus infection
CPT/HCPCS: 99406; 99283; 73130; 12002; J3490

== ENCOUNTER 2018-08-19 06:38 | Emergency (ER) | payer BC ==
[2018-08-19 06:54] VITALS: BP 162/97
--- NOTE | 2018-08-19 07:18 | ER Document Report ---
HPI - HPI Time Seen by Provider: 08/19/18 07:09 Pain Level: 1 Notes: Patient is a 32-year-old male who presents to the ED for right thumb laceration wound recheck after it was placed 3 days ago. Patient states that he has not had any issues since then and has been doing daily dressing changes. He has not noticed any redness, separation of the wound, purulence, or streaks. Denies drug allergies. No other concerns or complaints. Denies any headache, fever, URI, sore throat, chest pain, palpitations, syncope, cough, shortness of breath, wheeze, dyspnea, abdominal pain, nausea/vomiting/diarrhea, urinary retention, dysuria, hematuria, numbness/tingling, muscle paralysis/weakness, or rash. - ROS Systems Reviewed and Negative: Yes All other systems reviewed and negative - REPRODUCTIVE Reproductive: DENIES: : Past Medical History - Social History Smoking Status: Unknown if Ever Smoked Family History: Arthritis, CAD, COPD, DM, Hyperlipidemia, Hypertension, Malignancy. denies: CVA, Thyroid Disfunction Renal/ Medical History: Denies: Hx Peritoneal Dialysis Musculoskeletal Medical History: Reports Hx Musculoskeletal Trauma Skin Medical History: Reports Hx Cellulitis, Reports Hx MRSA Psychiatric Medical History: Reports: Hx Anxiety, Hx Bipolar Disorder, Hx Depression Traumatic Medical History: Reports: Hx Fractures - Toe Infectious Medical History: Reports: Hx MRSA Past Surgical History: Reports: Hx Myringotomy - Immunizations Hx Diphtheria, Pertussis, Tetanus Vaccination: Yes - 2016 [facility] Provider Document - CONSTITUTIONAL Agree With Documented VS: Yes Notes: PHYSICAL EXAMINATION: GENERAL: Well-appearing, well-nourished and in no acute distress. LUNGS: Breath sounds clear to auscultation bilaterally and equal. No wheezes rales or rhonchi. HEART: Regular rate and rhythm without murmurs, rubs, gallops. Musculoskeletal: Rt thumb: FROM to passive/active. Strength 5+/5. N/v intact distal. No evidence of erythema, warmth, purulence, induration, dehiscense, or streaks. Non-tender. [address] Extremities: No cyanosis, clubbing, or edema b/l. Peripheral pulses 2+. Capillary refill less than 3 seconds. NEUROLOGICAL: Normal speech, normal gait. Normal sensory, motor exams PSYCH: Normal mood, normal affect. SKIN: see above - INFECTION CONTROL TRAVEL OUTSIDE OF THE [place] IN LAST 30 DAYS: No Course - Re-evaluation Re-evalutation: 08/19/18 07:16 Patient is an afebrile, well-hydrated, 32-year-old to the ED for wound recheck of his right thumb laceration. Vitals are acceptable. PE is otherwise unremarkable. There is no evidence of infection or wound dehiscence. Patient has no concerns or complaints. Wound instructions reviewed. He is to continue taking his Keflex. Recheck with his PCM/V ED for suture removal 8-10 days from placement. Return to the ED with any other worsening/concerning symptoms otherwise as reviewed. Patient is in agreement. - Vital Signs Vital signs: Temp Pulse Resp BP Pulse Ox 97.9 F 76 14 162/97 H 99 08/19/18 06:49 08/19/18 06:49 08/19/18 06:49 08/19/18 06:49 08/19/18 06:49 Discharge - Discharge Clinical Impression: Encounter for wound re-check Condition: Stable Disposition: HOME, SELF-CARE Additional Instructions: No submersion of the wound under water. Change the dressing daily and keep the knots of the suture material clean from any dried discharge. You may leave the wound open to the air once there is no more discharge. See your PCM in 5-7 days for suture removal/ED if necessary. Monitor for any signs of worsening pain or redness, purulent drainage, streaks, and/or fever. Return to the ED if noticing any of the above symptoms or as needed. Take medications as directed. Forms: Elevated Blood Pressure Referrals: ASHLEY SANTOS MD [Primary Care Provider] - 08/25/18
== END 2018-08-19 07:27 | disposition home or self-care (01) ==
LOC: ER 06:38
DX: S61.011D Laceration without foreign body of right thumb without damage to nail, subsequent encounter (principal); W45.8XXD Other foreign body or object entering through skin, subsequent encounter; Z86.14 Personal history of Methicillin resistant Staphylococcus aureus infection
CPT/HCPCS: 99282

== ENCOUNTER 2018-08-24 17:42 | Emergency (ER) | payer BC ==
--- NOTE | 2018-08-24 19:16 | ER Document Report ---
ED Suture/Wound Recheck - General Chief Complaint: Suture Removal Stated Complaint: SUTURE REMOVAL Time Seen by Provider: 08/24/18 18:58 Mode of Arrival: Ambulatory Information source: Patient Notes: 32-year-old male was in the ED for the recheck of sutures to his right thumb. He states it is time for his sutures to be removed and he would like them removed today. He states he is not having any pain or drainage to the area there is no redness or swelling to there. Patient is alert and oriented respirations regular and unlabored speaking in full sentences walking with a even steady gait. TRAVEL OUTSIDE OF THE [place] IN LAST 30 DAYS: No - HPI Previous ED treatment: Laceration repair Antibiotics given previously: Prescription Quality of pain: No pain Severity: None Pain Level: Denies Context: Injury Symptoms since procedure: Numbness - To the flap. denies: Drainage, Fever, Pain , Red streaks, Redness, Swelling, Weakness Exacerbated by: Denies Relieved by: Denies - Related Data Allergies/Adverse Reactions: No Known Allergies Allergy (Verified 08/16/18 20:25) Past Medical History - General Information source: Patient - Social History Smoking Status: Current Every Day Smoker Cigarette use (# per day): Yes - Pack and a half a day Chew tobacco use (# tins/day): No Smoking Education Provided: Yes - 4 minutes Lives with: Family Family History: Arthritis, CAD, COPD, DM, Hyperlipidemia, Hypertension, Malignancy. denies: CVA, Thyroid Disfunction Patient has suicidal ideation: No Patient has homicidal ideation: No - Past Medical History Cardiac Medical History: Reports: None Pulmonary Medical History: Reports: None EENT Medical History: Reports: None Neurological Medical History: Reports: None Endocrine Medical History: Reports: None Renal/ Medical History: Reports: None Malignancy Medical History: Reports None GI Medical History: Reports: Hx Gastroesophageal Reflux Disease Musculoskeletal Medical History: Reports Hx Musculoskeletal Trauma Skin Medical History: Reports Hx Cellulitis, Reports Hx MRSA Psychiatric Medical History: Reports: Hx Anxiety, Hx Bipolar Disorder, Hx Depression Traumatic Medical History: Reports: Hx Fractures - Toe Infectious Medical History: Reports: Hx MRSA Past Surgical History: Reports: Hx Myringotomy - Immunizations Hx Diphtheria, Pertussis, Tetanus Vaccination: Yes - 2017 Review of Systems - Review of Systems Constitutional: No symptoms reported EENT: No symptoms reported Cardiovascular: No symptoms reported Respiratory: No symptoms reported Gastrointestinal: No symptoms reported Genitourinary: No symptoms reported Male Genitourinary: No symptoms reported Musculoskeletal: No symptoms reported Skin: Other - Patient here to have sutures checked in right thumb. Hematologic/Lymphatic: No symptoms reported Neurological/Psychological: No symptoms reported Physical Exam - Vital signs Vitals: Temp Pulse Resp BP Pulse Ox 98.6 F 79 18 165/94 H 98 08/24/18 18:02 08/24/18 18:02 08/24/18 18:02 08/24/18 18:02 08/24/18 18:02 Interpretation: Normal - General General appearance: Appears well, Alert - HEENT Head: Normocephalic, Atraumatic Eyes: Normal Pupils: PERRL - Respiratory Respiratory status: No respiratory distress Chest status: Nontender Breath sounds: Normal Chest palpation: Normal - Cardiovascular Rhythm: Regular Heart sounds: Normal auscultation Murmur: No - Abdominal Inspection: Normal Distension: No distension Bowel sounds: Normal Tenderness: Nontender Organomegaly: No organomegaly - Back Back: Normal, Nontender - Extremities General upper extremity: Normal inspection, Nontender, Normal color, Normal ROM , Normal temperature General lower extremity: Normal inspection, Nontender, Normal color, Normal ROM , Normal temperature, Normal weight bearing. No: Irene's sign - Neurological Neuro grossly intact: Yes Cognition: Normal Orientation: AAOx4 Prim Coma Scale Eye Opening: Spontaneous Rima Coma Scale Verbal: Oriented Prim Coma Scale Motor: Obeys Commands Rima Coma Scale Total: 15 Speech: Normal Motor strength normal: LUE, RUE, LLE, RLE Sensory: Normal - Psychological Associated symptoms: Normal affect, Normal mood - Skin Skin Temperature: Warm Skin Moisture: Dry Skin Color: Normal Location of irregularity: Extremities - Sutures to right thumb. They are well approximated and granulating but are not quite ready to be removed. There is no redness, no swelling, no tenderness to the area. Course - Re-evaluation Re-evalutation: 08/24/18 21:14 Patient was instructed to give the sutures 3 more days and then return for removal. They are healing well with no signs or symptoms of infection, no redness or inflammation or tenderness. There is no drainage. No fever to the area. Patient and verbalized agreement with treatment plan and stated they would return. - Vital Signs Vital signs: Temp Pulse Resp BP Pulse Ox 97.2 F 73 16 127/76 H 99 08/24/18 19:31 08/24/18 19:31 08/24/18 19:31 08/24/18 19:31 08/24/18 19:31 Discharge - Discharge Clinical Impression: Encounter for wound re-check Condition: Stable Disposition: HOME, SELF-CARE Additional Instructions: Please return in 3 days to have your sutures removed. They are not quite ready to remove yet. Please continue to clean well with soap and water apply bacitracin and dressing. Please keep your hand covered when at work. Today is the 13th so please return on the 16th for your suture removal. FOLLOW-UP CARE: If you have been referred to a physician for follow-up care, call the physician s office for an appointment as you were instructed or within the next two days. If you experience worsening or a significant change in your symptoms, notify the physician immediately or return to the Emergency Department at any time for re-evaluation. Forms: Elevated Blood Pressure, Return to Work, Smoking Cessation Education Referrals: ASHLEY SANTOS MD [Primary Care Provider] - Follow up as needed
[2018-08-24 19:35] VITALS: BP 127/76
== END 2018-08-24 19:48 | disposition home or self-care (01) ==
LOC: ER 17:42
DX: S61.011D Laceration without foreign body of right thumb without damage to nail, subsequent encounter (principal); X58.XXXD Exposure to other specified factors, subsequent encounter; R20.0 Anesthesia of skin; F17.210 Nicotine dependence, cigarettes, uncomplicated; Z71.6 Tobacco abuse counseling; Z86.14 Personal history of Methicillin resistant Staphylococcus aureus infection
CPT/HCPCS: 99282; 99406

== ENCOUNTER 2018-08-29 21:24 | Emergency (ER) | payer BC ==
[2018-08-29 21:35] VITALS: BP 151/85
--- NOTE | 2018-08-29 22:37 | ER Document Report ---
HPI - HPI Patient complains to provider of: suture removal Time Seen by Provider: 08/29/18 22:13 Pain Level: Denies Context: Patient is a 32-year-old male presents to the emergency department for suture removal. Patient states 11 days ago he sustained an injury to his right thumb. Presents to this emergency room and got 7 sutures placed. Patient states he was also placed on an antibiotic at that time but he is unsure of the name of the antibiotic. Patient states initially he did see some discharge from the wound states the wound has just been red for the last couple of days. Patient denies any active discharge. Patient denies any fever past medical history: None. Medications: None Allergies: None patient states he is up-to-date on his tetanus. - REPRODUCTIVE Reproductive: DENIES: : Past Medical History - General Information source: Patient - Social History Smoking Status: Unknown if Ever Smoked Family History: Arthritis, CAD, COPD, DM, Hyperlipidemia, Hypertension, Malignancy. denies: CVA, Thyroid Disfunction Renal/ Medical History: Denies: Hx Peritoneal Dialysis GI Medical History: Reports: Hx Gastroesophageal Reflux Disease Musculoskeletal Medical History: Reports Hx Musculoskeletal Trauma Skin Medical History: Reports Hx Cellulitis, Reports Hx MRSA Psychiatric Medical History: Reports: Hx Anxiety, Hx Bipolar Disorder, Hx Depression Traumatic Medical History: Reports: Hx Fractures - Toe Infectious Medical History: Reports: Hx MRSA Past Surgical History: Reports: Hx Myringotomy - Immunizations Hx Diphtheria, Pertussis, Tetanus Vaccination: Yes - 2016 [facility] Provider Document - CONSTITUTIONAL Agree With Documented VS: Yes Notes: GENERAL: Alert, interacts well. No acute distress. HEAD: Normocephalic, atraumatic. EYES: Pupils equal, round, and reactive to light. Extraocular movements intact. ENT: Oral mucosa moist, tongue midline. NECK: Full range of motion. Supple. Trachea midline. LUNGS: Clear to auscultation bilaterally, no wheezes, rales, or rhonchi. No respiratory distress. HEART: Regular rate and rhythm. No murmur ABDOMEN: Soft, non-tender. Non-distended. Bowel sounds present in all 4 quadrants. EXTREMITIES: Moves all 4 extremities spontaneously. No edema, normal radial and dorsalis pedis pulses bilaterally. No cyanosis. BACK: no cervical, thoracic, lumbar midline tenderness. No saddle anesthesia, normal distal neurovascular exam. NEUROLOGICAL: Alert and oriented x3. Normal speech. cranial nerves II through XII grossly intact PSYCH: Normal affect, normal mood. SKIN: Warm, dry, normal turgor. Laceration is a U shape that goes around to the distal right thumb posterior aspect. appears this to be relatively well- healed with some dehiscence around the distal right thumb. Patient's thumb does appear erythematous with no active discharge fluctuant area or induration noted. - INFECTION CONTROL TRAVEL OUTSIDE OF THE [place] IN LAST 30 DAYS: No Course - Re-evaluation Re-evalutation: 08/29/18 22:38 7 sutures were removed, Steri-Strips placed. Discussed treating the patient with oral antibiotics again due to the erythema and potential infection. Patient states the redness has increased over the last couple of days and he was worried about infection. Discussed following up with primary care provider or returning to the emergency room for any other concerning symptoms. Patient is afebrile, non-tachycardic, no systemic signs of infection. Close return precautions discussed - Vital Signs Vital signs: Temp Pulse Resp BP Pulse Ox 97.7 F 77 18 151/85 H 99 08/29/18 21:35 08/29/18 21:35 08/29/18 21:35 08/29/18 21:35 08/29/18 21:35 Discharge - Discharge Clinical Impression: Visit for suture removal, Skin wound closed with sterile strip Cellulitis Qualifiers: Site of cellulitis: extremity Site of cellulitis of extremity: finger Laterality: right Qualified Code(s): L03.011 - Cellulitis of right finger Condition: Stable Disposition: HOME, SELF-CARE Instructions: Cellulitis ([facility]) Additional Instructions: As we discussed you have been seen in the emergency department for suture removal. Unfortunately your sutures do appear infected. I will place you on antibiotics. Please take them as prescribed. We have placed Steri-Strips over your wound to help keep it closed. Please be careful in the next couple of days because her skin is very fragile now that the sutures are removed. You are at risk for reopening this injury. Please return to the emergency room follow-up with your primary care provider. Prescriptions: Cephalexin Monohydrate [Keflex 500 mg Capsule] 500 mg PO BID 7 Days #14 capsule Referrals: ASHLEY SANTOS MD [Primary Care Provider] - Follow up as needed
== END 2018-08-29 22:39 | disposition home or self-care (01) ==
LOC: ER 21:24
DX: T81.33XA Disruption of traumatic injury wound repair, initial encounter (principal); L03.011 Cellulitis of right finger; Y83.8 Other surgical procedures as the cause of abnormal reaction of the patient, or of later complication, without mention of misadventure at the time of the procedure; Z86.14 Personal history of Methicillin resistant Staphylococcus aureus infection

== ENCOUNTER 2019-09-25 11:56 | Emergency (ER) | payer OTHER, BC ==
[2019-09-25] MEDS ORDERED: IBUPROFEN 800 MG TABLET PO ONE (13:08)
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
[2019-09-25 15:13] VITALS: BP 145/94
== END 2019-09-25 15:13 | disposition home or self-care (01) ==
LOC: ER 11:56
DX: R07.81 Pleurodynia (principal); M54.5 Low back pain; M54.9 Dorsalgia, unspecified; V53.5XXA Driver of pick-up truck or van injured in collision with car, pick-up truck or van in traffic accident, initial encounter; R51 Headache; R42 Dizziness and giddiness; R25.2 Cramp and spasm; F17.200 Nicotine dependence, unspecified, uncomplicated
CPT/HCPCS: 99283